=== PATIENT | male | born 1940 | race Hispanic/Latino ===

== ENCOUNTER → 2017-07-01 | Outpatient (CLI) | payer OTHER ==
[~2017-07-01] MED LIST: BENZ-51 PO; CODE10LI PO; FLUT100B IH; LOSA50TA37 PO; PIOG30TA70 PO; TRAZ-185 PO
== END | disposition home or self-care (01) ==
LOC: OIH 16:01
PROVIDERS: ATTEND Family Medicine
DX: R91.8 Other nonspecific abnormal finding of lung field (principal)
CPT/HCPCS: 71046

== ENCOUNTER → 2017-07-11 | Outpatient (CLI) | payer OTHER ==
[~2017-07-11] MED LIST changes: +IOPAMIDOL-370 75 ML VIAL IV ONE
== END | disposition home or self-care (01) ==
LOC: RAH 13:39
PROVIDERS: ATTEND Family Medicine
DX: J90 Pleural effusion, not elsewhere classified (principal); K80.20 Calculus of gallbladder without cholecystitis without obstruction; F17.201 Nicotine dependence, unspecified, in remission; J98.11 Atelectasis
CPT/HCPCS: 71260; Q9967

== ENCOUNTER 2017-07-20 05:26 | Inpatient (IN) | payer OTHER ==
[~2017-07-20] VITALS: Ht 167.6 cm; Wt 79.4 kg
[2017-07-20 06:03] LABS: BASOPHILS % (AUTO) 0.7 % (0.0-5.0); EOSINOPHILS % (AUTO) 1.9 % (0.0-8.0); HEMATOCRIT 34.9 % (42-54); LYMPHOCYTES % (AUTO) 7.9 % (21.0-51.0); MEAN CORPUSCULAR HEMOGLOBIN 30.9 pg (27.0-33.0); MEAN CORPUSCULAR HGB CONC 34.9 g/dL (32.0-36.0); MEAN CORPUSCULAR VOLUME 88.5 fL (79-99); MONOCYTES % (AUTO) 6.9 % (3.0-13.0); NEUTROPHILS % (AUTO) 82.6 % (40.0-77.0); PLATELET COUNT (AUTO) 550 K/uL (130-400); RED BLOOD CELL COUNT(AUTO) 3.94 MIL/uL (4.50-6.20); RED CELL DISTRIBUTION WIDTH 13.5 % (11.0-15.5); WHITE BLOOD COUNT (AUTO) 18.9 K/uL (4.8-10.8)
[2017-07-20] MEDS ORDERED: IPRATROPIUM/ALBUTEROL SULFATE 3 ML SOLUTION IH ONE (06:11)
[2017-07-20 06:20] LABS: INR 0.97 (0.85-1.15); PARTIAL THROMBOPLASTIN TIME 31.5 SEC (26.3-35.5); PROTHROMBIN TIME 10.2 SEC (9.6-11.6)
[2017-07-20 06:21] LABS: ALBUMIN 2.9 g/dL (3.5-5.0); BILIRUBIN,TOTAL 0.3 mg/dL (0.2-1.0); POTASSIUM 4.4 mmol/L (3.5-5.1)
[2017-07-20] MEDS ORDERED: ZOSYN 3.375GM+NS 50ML 50 ML IV ONE (06:56)
[2017-07-20 10:16] VITALS: BP 139/70
[2017-07-20 11:00] VITALS: BP 140/76
[2017-07-20] MEDS ORDERED: LOSA50TA37 PO (11:30)
[2017-07-20] MEDS ORDERED: TRAZ-185 PO (11:30)
[2017-07-20] MEDS ORDERED: FLUT100B IH (11:30)
[2017-07-20] MEDS ORDERED: BENZ-51 PO (11:30)
[2017-07-20] MEDS ORDERED: PIOG30TA70 PO (11:30)
[2017-07-20] MEDS ORDERED: CODE10LI PO (11:30)
[2017-07-20] MEDS ORDERED: LIDOCAINE HCL-MPF 1% 2ML VIAL ONE (13:30)
[2017-07-20 15:07] LABS: TOTAL PROTEIN, SERUM 7.3 g/dL (6.0-8.3)
[2017-07-20 15:44] LABS: APPEARANCE BODY FLUID SLIGHTLY CLOUDY (CLEAR); BODY FLUID WBC 173 /cu. mm.; COLOR,BODY FLUID YELLOW (LT YELLOW); SPECIMENTYPE,BODY FLUID PLEURAL; TOTAL VOLUME,BODY FLUID 1000 mL
[2017-07-20 15:45] LABS: BODY FLUID RBC 588 /cu. mm.
[2017-07-20 16:00] VITALS: BP 130/74
[2017-07-20 16:39] LABS: BF EOSINOPHIL 7 %; BF LYMPHOCYTE 74 %; BF MONOCYTE 1 %; BF OTHER CELLS 1
[2017-07-20] MEDS ORDERED: PANTOPRAZOLE SODIUM 40 MG TABLET.DR PO SCH (16:48)
[2017-07-20] MEDS ORDERED: ACETAMINOPHEN 325 MG TAB PO PRN (17:00)
[2017-07-20] MEDS: LEVOFLOXACIN 500 MG/D5W 100 ML 100 ML IV SCH (17:21)
[2017-07-20] MEDS: IPRATROPIUM/ALBUTEROL SULFATE 3 ML SOLUTION IH SCH ×2 (19:20→23:25)
[2017-07-20 20:00] VITALS: BP 142/76
[2017-07-20] MEDS: ZOSYN 3.375GM+NS 50ML 50 ML IV SCH (23:42)
[2017-07-21] VITALS (7 sets, daily range): BP systolic 93–129; BP diastolic 49–72
[2017-07-21] MEDS: ZOSYN 3.375GM+NS 50ML 50 ML IV SCH ×3 (06:05→23:57)
[2017-07-21] MEDS: IPRATROPIUM/ALBUTEROL SULFATE 3 ML SOLUTION IH SCH ×4 (06:37→23:35)
[2017-07-21] MEDS: PANTOPRAZOLE SODIUM 40 MG TABLET.DR PO SCH (08:01)
[2017-07-21] MEDS ORDERED: IOPAMIDOL-370 75 ML VIAL IV ONE (14:21)
[2017-07-21] MEDS: LEVOFLOXACIN 500 MG/D5W 100 ML 100 ML IV SCH (17:45)
[2017-07-21] MEDS ORDERED: BENZONATATE 100 MG CAPSULE PO SCH (19:15)
[2017-07-21] MEDS: SODIUM CHLORIDE 1,000 MG TAB PO SCH (23:57)
[2017-07-22] VITALS (13 sets, daily range): BP systolic 102–128; BP diastolic 52–74
[2017-07-22 04:55] LABS: HEMATOCRIT 30.1 % (42-54); MEAN CORPUSCULAR HEMOGLOBIN 30.8 pg (27.0-33.0); MEAN CORPUSCULAR HGB CONC 34.9 g/dL (32.0-36.0); MEAN CORPUSCULAR VOLUME 88.1 fL (79-99); NUCLEATED RED BLOOD CELLS 0.1 % (0.0-0.19); PLATELET COUNT (AUTO) 476 K/uL (130-400); RED BLOOD CELL COUNT(AUTO) 3.42 MIL/uL (4.50-6.20); RED CELL DISTRIBUTION WIDTH 13.5 % (11.0-15.5); WHITE BLOOD COUNT (AUTO) 14.5 K/uL (4.8-10.8)
[2017-07-22 05:20] LABS: CREATININE 1.1 mg/dL (0.5-1.5); PHOSPHORUS 3.8 mg/dL (2.5-4.9); POTASSIUM 4.1 mmol/L (3.5-5.1); THYROID STIMULATING HORMONE 11.5 uIU/mL (0.36-3.74)
[2017-07-22] MEDS: ZOSYN 3.375GM+NS 50ML 50 ML IV SCH ×3 (06:15→20:00)
[2017-07-22] MEDS: IPRATROPIUM/ALBUTEROL SULFATE 3 ML SOLUTION IH SCH ×4 (06:38→23:45)
[2017-07-22] MEDS: SODIUM CHLORIDE 1,000 MG TAB PO SCH ×3 (09:38→20:00)
[2017-07-22] MEDS: PANTOPRAZOLE SODIUM 40 MG TABLET.DR PO SCH (09:38)
[2017-07-22] MEDS: ENOXAPARIN SODIUM 40 MG/0.4 ML SYRINGE SQ SCH (09:39)
[2017-07-22] MEDS: TRAZODONE HCL 50 MG TAB PO SCH (17:53)
[2017-07-22] MEDS: LEVOFLOXACIN 500 MG/D5W 100 ML 100 ML IV SCH (17:59)
[2017-07-22] MEDS ORDERED: SENNOSIDES 8.6 MG TABLET PO SCH (19:30)
[2017-07-22] MEDS: DOCUSATE SODIUM 100 MG CAP PO SCH (20:03)
[2017-07-23 03:00] VITALS: BP 128/61
[2017-07-23] MEDS: ZOSYN 3.375GM+NS 50ML 50 ML IV SCH ×3 (04:44→20:17)
[2017-07-23 05:21] LABS: HEMATOCRIT 33.8 % (42-54); MEAN CORPUSCULAR HEMOGLOBIN 29.9 pg (27.0-33.0); MEAN CORPUSCULAR HGB CONC 33.9 g/dL (32.0-36.0); MEAN CORPUSCULAR VOLUME 88.1 fL (79-99); PLATELET COUNT (AUTO) 527 K/uL (130-400); RED BLOOD CELL COUNT(AUTO) 3.83 MIL/uL (4.50-6.20); RED CELL DISTRIBUTION WIDTH 13.3 % (11.0-15.5); WHITE BLOOD COUNT (AUTO) 15.4 K/uL (4.8-10.8)
[2017-07-23 05:39] LABS: CREATININE 1.2 mg/dL (0.5-1.5); POTASSIUM 4.3 mmol/L (3.5-5.1)
[2017-07-23] MEDS: IPRATROPIUM/ALBUTEROL SULFATE 3 ML SOLUTION IH SCH ×4 (06:30→23:27)
[2017-07-23 08:00] VITALS: BP 124/68
[2017-07-23] MEDS: SODIUM CHLORIDE 1,000 MG TAB PO SCH ×3 (09:05→20:17)
[2017-07-23] MEDS: DOCUSATE SODIUM 100 MG CAP PO SCH ×3 (09:05→20:17)
[2017-07-23] MEDS: PANTOPRAZOLE SODIUM 40 MG TABLET.DR PO SCH (09:09)
[2017-07-23] MEDS: ENOXAPARIN SODIUM 40 MG/0.4 ML SYRINGE SQ SCH (09:10)
[2017-07-23 11:00] VITALS: BP 117/63
[2017-07-23] MEDS: GUAIFENESIN-CODEINE 5 ML SYRUP PO SCH (12:42)
[2017-07-23] MEDS ORDERED: BENZONATATE 100 MG CAPSULE PO PRN (14:15)
[2017-07-23 16:00] VITALS: BP 100/50
[2017-07-23] MEDS: LEVOFLOXACIN 500 MG/D5W 100 ML 100 ML IV SCH (16:30)
[2017-07-23] MEDS: TRAZODONE HCL 50 MG TAB PO SCH (16:30)
[2017-07-23 21:01] VITALS: BP 99/51
[2017-07-24 00:17] VITALS: BP 114/63
[2017-07-24 04:36] VITALS: BP 129/66
[2017-07-24] MEDS: ZOSYN 3.375GM+NS 50ML 50 ML IV SCH ×3 (05:29→20:50)
[2017-07-24 05:34] LABS: CREATININE 1.2 mg/dL (0.5-1.5); POTASSIUM 4.4 mmol/L (3.5-5.1)
[2017-07-24] MEDS: IPRATROPIUM/ALBUTEROL SULFATE 3 ML SOLUTION IH SCH ×4 (06:18→23:16)
[2017-07-24] MEDS: PANTOPRAZOLE SODIUM 40 MG TABLET.DR PO SCH (06:29)
[2017-07-24] MEDS: LEVOTHYROXINE 50 MCG TABLET PO SCH (06:29)
[2017-07-24 08:00] VITALS: BP 139/67
[2017-07-24] MEDS: GUAIFENESIN-CODEINE 5 ML SYRUP PO SCH (09:24)
[2017-07-24] MEDS: DOCUSATE SODIUM 100 MG CAP PO SCH ×3 (09:25→20:50)
[2017-07-24] MEDS: ENOXAPARIN SODIUM 40 MG/0.4 ML SYRINGE SQ SCH (09:25)
[2017-07-24] MEDS: SODIUM CHLORIDE 1,000 MG TAB PO SCH ×3 (09:25→20:50)
[2017-07-24] MEDS ORDERED: PIOG30TA70 PO (09:31)
[2017-07-24] MEDS ORDERED: LOSA50TA37 PO (09:31)
[2017-07-24 11:00] VITALS: BP 119/51
[2017-07-24] MEDS: MAGNESIUM CITRATE 296 ML SOLUTION PO SCH (14:03)
[2017-07-24 16:00] VITALS: BP 126/58
[2017-07-24] MEDS: LEVOFLOXACIN 500 MG/D5W 100 ML 100 ML IV SCH (17:42)
[2017-07-24] MEDS: TRAZODONE HCL 50 MG TAB PO SCH (17:43)
[2017-07-24 20:52] VITALS: BP 121/62
[2017-07-25] VITALS (14 sets, daily range): BP systolic 115–173; BP diastolic 55–92
[2017-07-25 05:12] LABS: HEMATOCRIT 30.1 % (42-54); MEAN CORPUSCULAR HEMOGLOBIN 29.8 pg (27.0-33.0); MEAN CORPUSCULAR HGB CONC 33.8 g/dL (32.0-36.0); MEAN CORPUSCULAR VOLUME 88.2 fL (79-99); PLATELET COUNT (AUTO) 494 K/uL (130-400); RED BLOOD CELL COUNT(AUTO) 3.41 MIL/uL (4.50-6.20); RED CELL DISTRIBUTION WIDTH 13.5 % (11.0-15.5); WHITE BLOOD COUNT (AUTO) 13.1 K/uL (4.8-10.8)
[2017-07-25 05:17] LABS: INR 1.03 (0.85-1.15); PROTHROMBIN TIME 10.8 SEC (9.6-11.6)
[2017-07-25 05:20] LABS: CREATININE 0.9 mg/dL (0.5-1.5); POTASSIUM 4.3 mmol/L (3.5-5.1)
[2017-07-25] MEDS: ZOSYN 3.375GM+NS 50ML 50 ML IV SCH ×3 (05:35→20:31)
[2017-07-25] MEDS: LEVOTHYROXINE 50 MCG TABLET PO SCH (05:35)
[2017-07-25] MEDS: IPRATROPIUM/ALBUTEROL SULFATE 3 ML SOLUTION IH SCH ×3 (06:27→18:53)
[2017-07-25] MEDS: PANTOPRAZOLE SODIUM 40 MG TABLET.DR PO SCH (08:34)
[2017-07-25] MEDS: PIOGLITAZONE HCL 30 MG TAB PO SCH (08:34)
[2017-07-25] MEDS: ENOXAPARIN SODIUM 40 MG/0.4 ML SYRINGE SQ SCH (09:00)
[2017-07-25] MEDS: DOCUSATE SODIUM 100 MG CAP PO SCH ×3 (10:12→20:31)
[2017-07-25] MEDS: SODIUM CHLORIDE 1,000 MG TAB PO SCH ×3 (10:12→20:31)
[2017-07-25] MEDS: HYDROCODONE/ACETAMINOPHEN 5/325 MG TAB PO PRN ×2 (11:29→18:08)
[2017-07-25] MEDS: MAGNESIUM CITRATE 296 ML SOLUTION PO SCH (11:45)
[2017-07-25] MEDS: LEVOFLOXACIN 500 MG/D5W 100 ML 100 ML IV SCH (16:13)
[2017-07-25] MEDS: TRAZODONE HCL 50 MG TAB PO SCH (16:13)
[2017-07-26] MEDS: IPRATROPIUM/ALBUTEROL SULFATE 3 ML SOLUTION IH SCH ×3 (00:41→11:14)
[2017-07-26 03:51] VITALS: BP 128/61
[2017-07-26] MEDS: ZOSYN 3.375GM+NS 50ML 50 ML IV SCH ×2 (05:01→13:22)
[2017-07-26] MEDS: HYDROCODONE/ACETAMINOPHEN 5/325 MG TAB PO PRN ×2 (05:02→11:14)
[2017-07-26] MEDS: PIOGLITAZONE HCL 30 MG TAB PO SCH (06:17)
[2017-07-26] MEDS: PANTOPRAZOLE SODIUM 40 MG TABLET.DR PO SCH (06:17)
[2017-07-26] MEDS: LEVOTHYROXINE 50 MCG TABLET PO SCH (06:17)
[2017-07-26 07:52] VITALS: BP 125/57
[2017-07-26] MEDS: DOCUSATE SODIUM 100 MG CAP PO SCH (10:06)
[2017-07-26] MEDS: SODIUM CHLORIDE 1,000 MG TAB PO SCH (10:06)
[2017-07-26] MEDS: ENOXAPARIN SODIUM 40 MG/0.4 ML SYRINGE SQ SCH (10:09)
[2017-07-26 11:36] VITALS: BP 127/65
== END 2017-07-26 15:30 | DRG 193 ==
LOC: EDH 05:26 → OBSVTOIN 07:35 → EDHIP 07:35 → 3CH 09:40
PROVIDERS: ADMIT Internal Medicine Pulmonary Disease; ATTEND Internal Medicine Pulmonary Disease
PROC: 0BBM3ZX Excision of Bilateral Lungs, Percutaneous Approach, Diagnostic (ICD-10-PCS; 2017-07-22)
PROC: 0W993ZZ Drainage of Right Pleural Cavity, Percutaneous Approach (ICD-10-PCS; principal; 2017-07-25)
PROC: 02HV33Z Insertion of Infusion Device into Superior Vena Cava, Percutaneous Approach (ICD-10-PCS; 2017-07-26)
DX: J18.9 Pneumonia, unspecified organism (principal); J96.91 Respiratory failure, unspecified with hypoxia; J90 Pleural effusion, not elsewhere classified; J44.1 Chronic obstructive pulmonary disease with (acute) exacerbation; E87.1 Hypo-osmolality and hyponatremia; R18.8 Other ascites; J44.0 Chronic obstructive pulmonary disease with (acute) lower respiratory infection; R91.1 Solitary pulmonary nodule; J44.9 Chronic obstructive pulmonary disease, unspecified; F32.9 Major depressive disorder, single episode, unspecified; I10 Essential (primary) hypertension; E11.9 Type 2 diabetes mellitus without complications; E03.9 Hypothyroidism, unspecified; Z88.8 Allergy status to other drugs, medicaments and biological substances
CPT/HCPCS: 32405; 32554; 32555; 36415; 71045; 71250; 74160; 77012; 80048; 80053; 82945; 82948; 83605; 83615; 83690; 83735; 83880; 83935; 83986; 84100; 84155; 84157; 84300; 84443; 84484; 85025; 85027; 85610; 85730; 87040; 87071; 87103; 87116; 87205; 87206; 88108; 88305; 89051; 93005; 94640; 94664; 94760; 99291; C1729; C1894; J1650; J1956; J2250; J2543; J3010; J3490; Q9967

== ENCOUNTER 2017-08-01 12:53 | Inpatient (IN) | payer OTHER ==
[2017-08-01] VITALS (9 sets, daily range): BP systolic 123–142; BP diastolic 66–75
[~2017-08-01] VITALS: Ht 167.6 cm; Wt 78.9 kg
[~2017-08-01 12:53] MED LIST changes: -IOPAMIDOL-370 75 ML VIAL IV ONE
[2017-08-01 13:34] LABS: BASOPHILS % (AUTO) 0.5 % (0.0-5.0); EOSINOPHILS % (AUTO) 1.7 % (0.0-8.0); HEMATOCRIT 32.6 % (42-54); LYMPHOCYTES % (AUTO) 5.9 % (21.0-51.0); MEAN CORPUSCULAR HGB CONC 33.2 g/dL (32.0-36.0); MEAN CORPUSCULAR VOLUME 87.3 fL (79-99); MONOCYTES % (AUTO) 6.7 % (3.0-13.0); NEUTROPHILS % (AUTO) 85.2 % (40.0-77.0); PLATELET COUNT (AUTO) 473 K/uL (130-400); RED BLOOD CELL COUNT(AUTO) 3.74 MIL/uL (4.50-6.20); RED CELL DISTRIBUTION WIDTH 13.7 % (11.0-15.5)
[2017-08-01 13:43] LABS: CREATININE 0.8 mg/dL (0.5-1.5); POTASSIUM 3.2 mmol/L (3.5-5.1)
[2017-08-01 13:53] LABS: ALBUMIN 2.3 g/dL (3.5-5.0); BILIRUBIN,TOTAL 0.3 mg/dL (0.2-1.0)
[2017-08-01 14:34] LABS: INR 1.03 (0.85-1.15); PARTIAL THROMBOPLASTIN TIME 30.3 SEC (26.3-35.5); PROTHROMBIN TIME 10.8 SEC (9.6-11.6)
[2017-08-01] MEDS ORDERED: LIDOCAINE HCL 1% 20 ML VIAL ONE (15:20)
[2017-08-01] MEDS ORDERED: GUAIFENESIN-CODEINE 5 ML SYRUP PO SCH (20:45)
[2017-08-01] MEDS ORDERED: BENZONATATE 100 MG CAPSULE PO PRN (20:45)
[2017-08-02 04:00] VITALS: BP 131/67
[2017-08-02 07:00] VITALS: BP 130/71
[2017-08-02] MEDS: PIOGLITAZONE HCL 30 MG TAB PO SCH (08:41)
[2017-08-02] MEDS: LOSARTAN 50 MG TABLET PO SCH (08:41)
[2017-08-02 11:00] VITALS: BP 124/61
[2017-08-02 16:00] VITALS: BP 108/57
[2017-08-02] MEDS: TRAZODONE HCL 50 MG TAB PO SCH (17:03)
[2017-08-02 19:43] VITALS: BP 109/56
[2017-08-02] MEDS: LEVOFLOXACIN 500 MG/D5W 100 ML 100 ML IV SCH (21:15)
[2017-08-03] VITALS (7 sets, daily range): BP systolic 112–132; BP diastolic 52–68
[2017-08-03 06:23] LABS: BASOPHILS % (AUTO) 0.7 % (0.0-5.0); EOSINOPHILS % (AUTO) 4.1 % (0.0-8.0); LYMPHOCYTES % (AUTO) 6.9 % (21.0-51.0); MEAN CORPUSCULAR HGB CONC 33.2 g/dL (32.0-36.0); MEAN CORPUSCULAR VOLUME 87.4 fL (79-99); MONOCYTES % (AUTO) 7.8 % (3.0-13.0); NEUTROPHILS % (AUTO) 80.5 % (40.0-77.0); PLATELET COUNT (AUTO) 435 K/uL (130-400); RED BLOOD CELL COUNT(AUTO) 3.77 MIL/uL (4.50-6.20); RED CELL DISTRIBUTION WIDTH 13.8 % (11.0-15.5)
[2017-08-03 06:34] LABS: ALBUMIN 1.8 g/dL (3.5-5.0); BILIRUBIN,TOTAL 0.2 mg/dL (0.2-1.0); CREATININE 0.7 mg/dL (0.5-1.5); POTASSIUM 3.5 mmol/L (3.5-5.1); TOTAL PROTEIN, SERUM 6.1 g/dL (6.0-8.3)
[2017-08-03] MEDS: PIOGLITAZONE HCL 30 MG TAB PO SCH (08:19)
[2017-08-03] MEDS: LOSARTAN 50 MG TABLET PO SCH (08:19)
[2017-08-03] MEDS ORDERED: POTASSIUM CHLORIDE 10% ELIXIR 20 MEQ/15 ML UDCUP PO PRN (17:00)
[2017-08-03] MEDS ORDERED: LIDOCAINE HCL-MPF 1% 2ML VIAL IVP PRN (17:00)
[2017-08-03] MEDS ORDERED: POTASSIUM CHLORIDE 20MEQ/100ML 100 ML IV PRN (17:00)
[2017-08-03] MEDS: POTASSIUM CHLORIDE 20 MEQ ERTAB PO PRN ×2 (17:34→19:30)
[2017-08-03] MEDS: TRAZODONE HCL 50 MG TAB PO SCH (17:35)
[2017-08-03] MEDS: LEVOFLOXACIN 500 MG/D5W 100 ML 100 ML IV SCH (20:44)
[2017-08-04] VITALS (7 sets, daily range): BP systolic 113–135; BP diastolic 59–68
[2017-08-04] MEDS: PIOGLITAZONE HCL 30 MG TAB PO SCH (06:20)
[2017-08-04 06:30] LABS: HEMATOCRIT 31.4 % (42-54); MEAN CORPUSCULAR HEMOGLOBIN 31.7 pg (27.0-33.0); MEAN CORPUSCULAR HGB CONC 36.2 g/dL (32.0-36.0); MEAN CORPUSCULAR VOLUME 87.6 fL (79-99); PLATELET COUNT (AUTO) 514 K/uL (130-400); RED BLOOD CELL COUNT(AUTO) 3.58 MIL/uL (4.50-6.20); RED CELL DISTRIBUTION WIDTH 14.2 % (11.0-15.5); WHITE BLOOD COUNT (AUTO) 12.6 K/uL (4.8-10.8)
[2017-08-04 06:38] LABS: CREATININE 0.7 mg/dL (0.5-1.5); POTASSIUM 3.9 mmol/L (3.5-5.1)
[2017-08-04] MEDS: LOSARTAN 50 MG TABLET PO SCH (09:54)
[2017-08-04] MEDS: TRAZODONE HCL 50 MG TAB PO SCH (16:16)
[2017-08-04] MEDS ORDERED: HYDROCODONE/ACETAMINOPHEN 5/325 MG TAB ONE (19:58)
[2017-08-04] MEDS ORDERED: HYDROCODONE/ACETAMINOPHEN 5/325 MG TAB PO PRN (20:00)
[2017-08-04] MEDS: LEVOFLOXACIN 500 MG/D5W 100 ML 100 ML IV SCH (20:02)
[2017-08-05] VITALS (12 sets, daily range): BP systolic 108–142; BP diastolic 56–74
[2017-08-05] MEDS: PIOGLITAZONE HCL 30 MG TAB PO SCH (06:28)
[2017-08-05] MEDS: LOSARTAN 50 MG TABLET PO SCH (08:30)
[2017-08-05] MEDS ORDERED: LIDOCAINE HCL MPF 1% 5ML VIAL ONE (10:09)
[2017-08-05] MEDS ORDERED: FENTANYL CITRATE PF 50 MCG/1 ML 2ML VIAL ONE (11:00)
[2017-08-05] MEDS: TRAZODONE HCL 50 MG TAB PO SCH (17:15)
[2017-08-05] MEDS: HYDROCODONE/ACETAMINOPHEN 5/325 MG TAB PO PRN (17:21)
[2017-08-05] MEDS: LEVOFLOXACIN 500 MG/D5W 100 ML 100 ML IV SCH (20:31)
[2017-08-06 04:00] VITALS: BP 126/69
[2017-08-06] MEDS: HYDROCODONE/ACETAMINOPHEN 5/325 MG TAB PO PRN ×2 (05:22→13:22)
[2017-08-06 05:29] LABS: BASOPHILS % (AUTO) 0.4 % (0.0-5.0); EOSINOPHILS % (AUTO) 2.2 % (0.0-8.0); HEMATOCRIT 30.3 % (42-54); LYMPHOCYTES % (AUTO) 6.5 % (21.0-51.0); MEAN CORPUSCULAR HEMOGLOBIN 29.6 pg (27.0-33.0); MEAN CORPUSCULAR HGB CONC 33.8 g/dL (32.0-36.0); MEAN CORPUSCULAR VOLUME 87.6 fL (79-99); MONOCYTES % (AUTO) 8.6 % (3.0-13.0); NEUTROPHILS % (AUTO) 82.3 % (40.0-77.0); PLATELET COUNT (AUTO) 494 K/uL (130-400); RED BLOOD CELL COUNT(AUTO) 3.46 MIL/uL (4.50-6.20); WHITE BLOOD COUNT (AUTO) 13.3 K/uL (4.8-10.8)
[2017-08-06 05:48] LABS: ALBUMIN 1.9 g/dL (3.5-5.0); BILIRUBIN,TOTAL 0.4 mg/dL (0.2-1.0); CREATININE 0.8 mg/dL (0.5-1.5); TOTAL PROTEIN, SERUM 6.1 g/dL (6.0-8.3)
[2017-08-06 07:45] VITALS: BP 105/51
[2017-08-06] MEDS: LOSARTAN 50 MG TABLET PO SCH (09:22)
[2017-08-06] MEDS: PIOGLITAZONE HCL 30 MG TAB PO SCH (09:23)
[2017-08-06 11:45] VITALS: BP 90/32
[2017-08-06 12:19] VITALS: BP 115/48
[2017-08-06 16:00] VITALS: BP 97/52
[2017-08-06] MEDS: TRAZODONE HCL 50 MG TAB PO SCH (18:16)
== END 2017-08-06 19:15 | disposition home health service (06) | DRG 180 ==
LOC: EDH 12:53 → EDHIP 13:25 → 3DH 14:40
PROVIDERS: ADMIT Family Medicine; ATTEND Family Medicine
PROC: 0W993ZZ Drainage of Right Pleural Cavity, Percutaneous Approach (ICD-10-PCS; principal; 2017-08-01)
PROC: 0W9900Z Drainage of Right Pleural Cavity with Drainage Device, Open Approach (ICD-10-PCS; 2017-08-05)
DX: C78.00 Secondary malignant neoplasm of unspecified lung (principal); J96.21 Acute and chronic respiratory failure with hypoxia; J91.0 Malignant pleural effusion; Z87.891 Personal history of nicotine dependence; E11.9 Type 2 diabetes mellitus without complications; I10 Essential (primary) hypertension; E78.5 Hyperlipidemia, unspecified; C76.8 Malignant neoplasm of other specified ill-defined sites
CPT/HCPCS: 32550; 32555; 36415; 71045; 71046; 75989; 80048; 80053; 82948; 85025; 85027; 85610; 85730; 87040; 94760; 97039; J1644; J1956; J3010; J3490